=== PATIENT | female | born 2000 | race Caucasian/White ===

== ENCOUNTER 2023-05-21 19:55 | Inpatient (IN) ==
--- NOTE | 2023-05-21 19:58 | Emergency Department Note ---
Impression & Plan Depression with suicidal ideation ED Provider Note NAME: ROHAN CASTRO AGE: 23 SEX: F : 2000 ARRIVES VIA: Walk-In INFORMANT: [Patient][, ] ED PROVIDER(S): [Wu Luna MD] CHIEF COMPLAINT: Mental wellness concern MEDICAL DECISION MAKING: Patient presents due to concern for passive suicidal ideation but is seeking inpatient treatment. Blood work was obtained. Patient was ordered some Ativan as well as her home seizure medications which she was instructed to take as she was about due for these. Patient was deemed medically cleared seen and evaluated by psych rn case manager and was referred for inpatient treatment. Bed search pending but likely pending placement tomorrow. Patient was signed out to Dr. Bird pending placement Prior /Outside records reviewed: [none] Differential diagnosis: Mood disorder, infection, hypoglycemia, electrolyte abnormalities, toxicologic among others were considered HPI: Patient presents due to concern for mental wellness concern. The patient presents today as she has been having some suicidal thoughts. The patient denies any active plan. No prior history of suicide attempt but has practiced self-injurious behavior including cutting. The patient denies any HI or AVH. The patient states that this began last evening seem to be worse this morning. Patient states that she was trying to tell her mother about something important and her mother got very upset with her and was banging on the seat in the car. This is caused the patient to cry. The patient states that she feels safe at home most of the time. Patient states that her grandfather does have a gun in a closet at home. The patient states that her sleep has been poor not sleeping very much and her appetite comes and goes. Patient currently does not take any medications for depression or anxiety. PAST MEDICAL HISTORY: [See Below] PAST SURGICAL HISTORY: [See Below] SOCIAL HISTORY: [See Below] HOME MEDICATIONS: [See Below] ALLERGIES: [See Below] VITALS: [See Below] PHYSICAL EXAMINATION: GENERAL: NAD, [wearing a mask,] non-toxic. EYE EXAM: Normal conjunctiva. PERRL, no anisocoria and EOM's grossly intact w/o pain. NECK: Supple, no nuchal rigidity, no adenopathy, non-tender. No signs of meningismus. FROM of the neck with good chin to chest and neck extension. No stridor. LUNGS: Clear to auscultation. Normal chest wall mechanics. HEART: NSR, no MRG. ABDOMEN: Abdomen soft, non-tender, no masses, no rebound or guarding. BACK: No CVA TTP. SKIN: No rashes and no bruising. UPPER EXTREMITIES: Upper extremities are grossly normal. LOWER EXTREMITIES: Grossly normal, no edema. NEURO EXAM: A&O x3, cranial nerves II-XII grossly intact, normal speech, moves all 4 extremities. Past Med/Surg History Medical History Asthma Depression Seizure Surgical History No significant past surgical history Family History Grandfather (Paternal) Prostate cancer Diabetes Heart disease Hypertension Social History (Updated 05/21/23 @ 23:54 by Wu Luna MD) Smoking Status: Never smoker Hx Alcohol Use: No Hx Substance Use: Yes Prescribed Medications: Marijuana Preferred Language: Japanese marital status: Single current occupation: [employer] Feels Safe at Home: No Gender Identity: Female Allergies Allergies Allergy/AdvReac Type Severity Reaction Status Date / Time No Known Allergies Allergy Verified 09/07/19 16:06 Home Meds Home Medications Medication Instructions Recorded Confirmed oxcarbazepine 600 mg tablet 600 mg PO BID 05/21/23 05/21/23 Results & Data (ED) Vital Signs Vital Signs - 24 hr 05/21/23 19:57 Temperature 36.7 C Temperature Source Temporal Artery Scan Pulse Rate 94 H Respiratory Rate 18 Respiratory Effort / Characteristics Non-Labored Spontaneous Respiratory Depth Normal Blood Pressure 126/77 Blood Pressure Mean 93 Blood Pressure Position Sitting Pulse Oximetry 99 Oxygen Delivery Method Room Air Sepsis Recent Fever Within 48 Hours No Sepsis New/Unexplained Change in Mental Status No Sepsis Action Taken by Nursing No Action Required Home Medications Current Medication List: was personally reviewed by me Laboratory Data Attestation: I reviewed the patient's lab results. 05/21/23 20:14 05/21/23 20:14 Lab Results 05/21/23 05/21/23 05/21/23 Range/Units 20:14 20:14 20:14 WBC 6.45 (4.8-10.8) K/ul RBC 3.77 L (4.20-5.40) M/uL Hgb 12.5 (12.0-16.0) g/dl Hct 35.8 L (37.0-47.0) % MCV 95.0 (80.0-100.0) fL MCH 33.2 (25.0-34.0) pg MCHC 34.9 (32.0-36.0) g/dL RDW Std Deviation 46.3 (36.4-46.3) fL RDW Coeff of [place] 13.2 (11.5-14.5) % Plt Count 278 (130-400) K/uL MPV 10.6 (9.4-12.4) fL Immature Gran % (Auto) 0.3 % Neut % (Auto) 49.4 % Lymph % (Auto) 36.9 % [place] % (Auto) 8.1 % Eos % (Auto) 3.7 % Baso % (Auto) 1.6 % Neut # (Auto) 3.19 (1.40-6.50) K/uL Lymph # (Auto) 2.38 (1.2-3.4) K/uL [place] # (Auto) 0.52 (0.11-0.59) K/uL Eos # (Auto) 0.24 (0-0.50) K/uL Baso # (Auto) 0.10 (0-0.2) K/uL Immature Gran # (Auto) 0.02 (0.01-0.20) K/uL Sodium 135 L (136-145) mmol/L Potassium 3.7 (3.5-5.1) mmol/L Chloride 101 (98-107) mmol/L Carbon Dioxide 27 (21-32) mmol/L Anion Gap 7 (3-11) BUN 11 (6-23) mg/dl Creatinine 0.74 (0.6-1.2) mg/dl Est Cr Clr Drug Dosing 125.7 ml/min Est GFR ( Amer) 134.2 ml/min Est GFR (Non-Af Amer) 115.8 ml/min BUN/Creatinine Ratio 14.9 (10-20) Glucose 82 (70-99(Fasting)) mg/dl Calcium 9.8 (8.6-10.3) mg/dl Total Bilirubin 0.4 (0.2-1.0) mg/dl AST 16 (13-39) U/L ALT 14 (7-52) U/L Alkaline Phosphatase 68 (34-104) U/L Total Protein 7.9 (6.0-8.3) gm/dl Albumin 5.0 (3.4-5.0) gm/dl Globulin 2.9 (2.5-4.0) gm/dl Albumin/Globulin Ratio 1.7 (0.9-2) TSH 2.885 (0.300-4.500) uIu/ml Urine Color Urine Appearance (Clear) Urine pH (4.5-7.5) Ur Specific [place] (1.000-1.030) Urine Protein (Negative) Urine Glucose (UA) (Negative) Urine Ketones (Negative) Urine Blood (Negative) Urine Nitrite (Negative) Urine Bilirubin (Negative) Urine Urobilinogen (Negative) Ur Leukocyte Esterase (Negative) Urine WBC (Auto) (0-5) /hpf Urine RBC (Auto) (0-4) /hpf U Hyaline Cast (Auto) (0-5) /lpf U Epithel Cells (Auto) (0-5) /lpf Urine Bacteria (Auto) (Negative) Urine Test (Negative) Salicylates (3.0-30) mg/dl Urine Opiates Screen (Neg) Ur Methadone, Qual (Neg) Acetaminophen (10-30) ug/ml Urine Barbiturates (Neg) Ur Phencyclidine (PCP) (Neg) U Amphetamin/Meth Scrn (Neg) MDMA (Ecstasy) Screen (Neg) U Benzodiazepines Scrn (Neg) Ur Cocaine Metabolite (Neg) U Marijuana (THC) Screen (Neg) Ethyl Alcohol mg/dL (<10.0) mg/dl SARS-CoV-2, RNA, NAAT (NEGATIVE) 05/21/23 05/21/23 05/21/23 Range/Units 20:14 20:14 20:14 WBC (4.8-10.8) K/ul RBC (4.20-5.40) M/uL Hgb (12.0-16.0) g/dl Hct (37.0-47.0) % MCV (80.0-100.0) fL MCH (25.0-34.0) pg MCHC (32.0-36.0) g/dL RDW Std Deviation (36.4-46.3) fL RDW Coeff of [place] (11.5-14.5) % Plt Count (130-400) K/uL MPV (9.4-12.4) fL Immature Gran % (Auto) % Neut % (Auto) % Lymph % (Auto) % [place] % (Auto) % Eos % (Auto) % Baso % (Auto) % Neut # (Auto) (1.40-6.50) K/uL Lymph # (Auto) (1.2-3.4) K/uL [place] # (Auto) (0.11-0.59) K/uL Eos # (Auto) (0-0.50) K/uL Baso # (Auto) (0-0.2) K/uL Immature Gran # (Auto) (0.01-0.20) K/uL Sodium (136-145) mmol/L Potassium (3.5-5.1) mmol/L Chloride (98-107) mmol/L Carbon Dioxide (21-32) mmol/L Anion Gap (3-11) BUN (6-23) mg/dl Creatinine (0.6-1.2) mg/dl Est Cr Clr Drug Dosing ml/min Est GFR ( Amer) ml/min Est GFR (Non-Af Amer) ml/min BUN/Creatinine Ratio (10-20) Glucose (70-99(Fasting)) mg/dl Calcium (8.6-10.3) mg/dl Total Bilirubin (0.2-1.0) mg/dl AST (13-39) U/L ALT (7-52) U/L Alkaline Phosphatase (34-104) U/L Total Protein (6.0-8.3) gm/dl Albumin (3.4-5.0) gm/dl Globulin (2.5-4.0) gm/dl Albumin/Globulin Ratio (0.9-2) TSH (0.300-4.500) uIu/ml Urine Color Yellow Urine Appearance Turbid A (Clear) Urine pH 8.0 H (4.5-7.5) Ur Specific [place] 1.028 (1.000-1.030) Urine Protein Negative (Negative) Urine Glucose (UA) Negative (Negative) Urine Ketones Trace H (Negative) Urine Blood Negative (Negative) Urine Nitrite Negative (Negative) Urine Bilirubin Negative (Negative) Urine Urobilinogen Negative (Negative) Ur Leukocyte Esterase Negative (Negative) Urine WBC (Auto) 5-10 H (0-5) /hpf Urine RBC (Auto) 0-4 (0-4) /hpf U Hyaline Cast (Auto) 5-10 H (0-5) /lpf U Epithel Cells (Auto) >30 H (0-5) /lpf Urine Bacteria (Auto) 1+ H (Negative) Urine Test (Negative) Salicylates < 3.0 L (3.0-30) mg/dl Urine Opiates Screen (Neg) Ur Methadone, Qual (Neg) Acetaminophen < 3 L (10-30) ug/ml Urine Barbiturates (Neg) Ur Phencyclidine (PCP) (Neg) U Amphetamin/Meth Scrn (Neg) MDMA (Ecstasy) Screen (Neg) U Benzodiazepines Scrn (Neg) Ur Cocaine Metabolite (Neg) U Marijuana (THC) Screen (Neg) Ethyl Alcohol mg/dL < 10.0 (<10.0) mg/dl SARS-CoV-2, RNA, NAAT (NEGATIVE) 05/21/23 05/21/23 05/21/23 Range/Units 20:14 20:14 21:06 WBC (4.8-10.8) K/ul RBC (4.20-5.40) M/uL Hgb (12.0-16.0) g/dl Hct (37.0-47.0) % MCV (80.0-100.0) fL MCH (25.0-34.0) pg MCHC (32.0-36.0) g/dL RDW Std Deviation (36.4-46.3) fL RDW Coeff of [place] (11.5-14.5) % Plt Count (130-400) K/uL MPV (9.4-12.4) fL Immature Gran % (Auto) % Neut % (Auto) % Lymph % (Auto) % [place] % (Auto) % Eos % (Auto) % Baso % (Auto) % Neut # (Auto) (1.40-6.50) K/uL Lymph # (Auto) (1.2-3.4) K/uL [place] # (Auto) (0.11-0.59) K/uL Eos # (Auto) (0-0.50) K/uL Baso # (Auto) (0-0.2) K/uL Immature Gran # (Auto) (0.01-0.20) K/uL Sodium (136-145) mmol/L Potassium (3.5-5.1) mmol/L Chloride (98-107) mmol/L Carbon Dioxide (21-32) mmol/L Anion Gap (3-11) BUN (6-23) mg/dl Creatinine (0.6-1.2) mg/dl Est Cr Clr Drug Dosing ml/min Est GFR ( Amer) ml/min Est GFR (Non-Af Amer) ml/min BUN/Creatinine Ratio (10-20) Glucose (70-99(Fasting)) mg/dl Calcium (8.6-10.3) mg/dl Total Bilirubin (0.2-1.0) mg/dl AST (13-39) U/L ALT (7-52) U/L Alkaline Phosphatase (34-104) U/L Total Protein (6.0-8.3) gm/dl Albumin (3.4-5.0) gm/dl Globulin (2.5-4.0) gm/dl Albumin/Globulin Ratio (0.9-2) TSH (0.300-4.500) uIu/ml Urine Color Urine Appearance (Clear) Urine pH (4.5-7.5) Ur Specific [place] (1.000-1.030) Urine Protein (Negative) Urine Glucose (UA) (Negative) Urine Ketones (Negative) Urine Blood (Negative) Urine Nitrite (Negative) Urine Bilirubin (Negative) Urine Urobilinogen (Negative) Ur Leukocyte Esterase (Negative) Urine WBC (Auto) (0-5) /hpf Urine RBC (Auto) (0-4) /hpf U Hyaline Cast (Auto) (0-5) /lpf U Epithel Cells (Auto) (0-5) /lpf Urine Bacteria (Auto) (Negative) Urine Test Negative (Negative) Salicylates (3.0-30) mg/dl Urine Opiates Screen Neg (Neg) Ur Methadone, Qual Neg (Neg) Acetaminophen (10-30) ug/ml Urine Barbiturates Neg (Neg) Ur Phencyclidine (PCP) Neg (Neg) U Amphetamin/Meth Scrn Neg (Neg) MDMA (Ecstasy) Screen Neg (Neg) U Benzodiazepines Scrn Neg (Neg) Ur Cocaine Metabolite Neg (Neg) U Marijuana (THC) Screen Pos H (Neg) Ethyl Alcohol mg/dL (<10.0) mg/dl SARS-CoV-2, RNA, NAAT NEGATIVE (NEGATIVE) Administered Medications Discontinued Medications Lorazepam (Lorazepam 1 Mg Tab) 1 mg SL NOW STA Stop: 05/21/23 20:41 Last Admin: 05/21/23 20:57 Dose: 1 mg Documented By: GLENN Discharge Plan Visit Data Chief Complaint: Mental Health Evaluation Stated Complaint: SUICIDAL THOUGHTS ED Provider: Wu Luna Discharge Problem: Depression with suicidal ideation Forms Stand Alone Forms: My [facility], Suicide Prevention Resources Prescriptions Prescriptions: No Action oxcarbazepine 600 mg Tablet 600 mg PO BID Referrals Referrals: PCP,NO [Physician] -
[2023-05-21] MEDS ORDERED: LORazepam 1 MG TAB SL STA (20:40)
[2023-05-21 21:14] LABS: Appearance Urine Turbid (Clear); Bacteria Urine Automated 1+ (Negative); Bilirubin Urine Negative (Negative); Blood Urine Negative (Negative); Color Urine Yellow; Epithelial Cell Urine Auto >30 /lpf (0-5); Glucose Urine UA Negative (Negative); Ketones Urine Trace (Negative); Leukocyte Esterase Urine Negative (Negative); Nitrite Urine Negative (Negative); Protein Urine Negative (Negative); RBC Urine Automated 0-4 /hpf (0-4); Specific Gravity Urine 1.028 (1.000-1.030); Urobilinogen Urine Negative (Negative)
[2023-05-21 21:15] LABS: Pregnancy Test, Urine Negative (Negative)
[2023-05-21 21:40] LABS: Basophils % (auto) 1.6 %; Eosinophils # (auto) 0.24 K/uL (0-0.50); Eosinophils % (auto) 3.7 %; Hematocrit (blood only) 35.8 % (37.0-47.0); Hemoglobin 12.5 g/dl (12.0-16.0); Immature Granulocytes # (auto) 0.02 K/uL (0.01-0.20); Immature Granulocytes % (auto) 0.3 %; Lymphocytes # (auto) 2.38 K/uL (1.2-3.4); Lymphocytes % (auto) 36.9 %; Mean Corpuscular Hemoglobin 33.2 pg (25.0-34.0); Mean Corpuscular Hgb Conc 34.9 g/dL (32.0-36.0); Mean Platelet Volume 10.6 fL (9.4-12.4); Monocytes # (auto) 0.52 K/uL (0.11-0.59); Monocytes % (auto) 8.1 %; Neutrophils # (auto) 3.19 K/uL (1.40-6.50); Neutrophils % (auto) 49.4 %; Platelet Count 278 K/uL (130-400); RDW Coefficient of Variation 13.2 % (11.5-14.5); RDW Standard Deviation 46.3 fL (36.4-46.3); Red Blood Count 3.77 M/uL (4.20-5.40); White Blood Count 6.45 K/ul (4.8-10.8)
[2023-05-21 22:04] LABS: Amphetamines+Metham, Urine Neg (Neg); Barbiturates, Urine Neg (Neg); Benzodiazepine, Urine Neg (Neg); Cocaine, Urine Neg (Neg); MDMA (Ecstacy), Urine Neg (Neg); Methadone, Urine Neg (Neg); Opiate, Urine Neg (Neg); Phencyclidine, Urine Neg (Neg)
[2023-05-21 22:08] LABS: Bilirubin,Total 0.4 mg/dl (0.2-1.0); Calcium 9.8 mg/dl (8.6-10.3); Potassium 3.7 mmol/L (3.5-5.1)
[2023-05-21 22:14] LABS: Albumin Globulin Ratio 1.7 (0.9-2); BUN Creatinine Ratio 14.9 (10-20); Creatinine Clr Calc Pharmacy 125.7 ml/min; Est GFR (African American) 134.2 ml/min; Est GFR (Non-African American) 115.8 ml/min; Globulin 2.9 gm/dl (2.5-4.0); Total Protein 7.9 gm/dl (6.0-8.3)
[2023-05-21 22:49] LABS: Acetaminophen < 3 ug/ml (10-30); Salicylate < 3.0 mg/dl (3.0-30)
--- NOTE | 2023-05-22 00:54 | Emergency Department Note ---
ED Visit Note Interval History: Sign out received from Dr. Luna who reviewed details of the encounter. Patient was pending bed placement. Summary: Patient was resting comfortably. She had made suicidal statements and was in need of inpatient psychiatric care. Patient has been accepted to [facility] .
[2023-05-22] MEDS ORDERED: OXcarbazepine 150 MG TABLET PO STA (03:54)
[2023-05-22] MEDS ORDERED: hydrOXYzine HCl 25 MG TAB PO PRN (03:58)
[2023-05-22] MEDS ORDERED: MAGNESIUM HYDROXIDE SUSP 30 ML UDC PO PRN (03:58)
[2023-05-22] MEDS ORDERED: NICOTINE POLACRILEX 2 MG GUM MT PRN (03:58)
[2023-05-22] MEDS ORDERED: SODIUM CHLORIDE 0.65% NA SOLN 45 ML (OCEAN) PRN (03:58)
[2023-05-22] MEDS ORDERED: ACETAMINOPHEN 325 MG TAB PO PRN (03:58)
[2023-05-22] MEDS ORDERED: BISMUTH SUBSALICYLATE LIQD 236 ML PO PRN (03:58)
[2023-05-22] MEDS ORDERED: ALUMINUM/MAGNESIUM SUSP 30 ML UDC PO PRN (03:58)
[2023-05-22] MEDS ORDERED: OXcarbazepine 150 MG TABLET PO SCH ×2 (09:00)
[2023-05-22] MEDS: NICOTINE 21 MG/24 HR TDSY TD SCH (10:10)
[2023-05-22] MEDS ORDERED: levETIRAcetam 500 MG TAB PO SCH (10:30)
[2023-05-22] MEDS: OXCARBAZEPINE 600 MG PO SCH ×2 (10:37→20:31)
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
[2023-05-22] MEDS: hydrOXYzine HCl 25 MG TAB PO PRN (20:29)
[2023-05-22] MEDS ORDERED: OXCARBAZEPINE 600 MG PO SCH (21:00)
[2023-05-23] MEDS: hydrOXYzine HCl 25 MG TAB PO PRN (00:44)
[2023-05-23] MEDS: OXCARBAZEPINE 600 MG PO SCH (08:42)
[2023-05-23] MEDS: NICOTINE 21 MG/24 HR TDSY TD SCH (08:42)
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
[2023-05-23 22:57] LABS: Marijuana Quant, GCMS Urine 4322 ng/mL (<5)
== END 2023-05-23 12:03 | disposition home or self-care (01) | DRG 884 ==
LOC: ED 19:55 → 3S 05-22 03:04